=== PATIENT | female | born 1945 | race Caucasian/White ===

== ENCOUNTER 2018-02-13 10:05 | Day surgery (SDC) | payer MEDICARE ==
[~2018-02-13 10:05] MED LIST: DEXAMETHASONE SOD PHOS 4 MG/ML VIAL; MORPHINE SULFATE 2 MG/ML DISP.SYRIN. IV; ONDANSETRON PF 4 MG/2 ML VIAL. IV; POVIDONE-IODINE 10% TOPICAL OINTMENT 28GM TUBE. TP; PROCHLORPERAZINE 10 MG/2 ML VIAL. IV; fentaNYL PF VIAL 100 MCG/2 ML VIAL IV
[2018-02-13 10:54] LABS: ADD MAN DIFF? NO
[2018-02-13 10:57] LABS: BASO % 1 % (0-3); EOS # 0.1 x10^3/uL (0.0-0.7); EOS % 2 % (0-3); HEMATOCRIT 39.8 % (36.0-47.0); HEMOGLOBIN 13.2 g/dL (12.0-15.5); LYMPH # 1.7 x10^3/uL (1.0-4.8); LYMPH % 25 % (24-48); MEAN CORPUSCULAR HEMOGLOBIN 30 pg (25-35); MEAN CORPUSCULAR HGB CONC 33 g/dL (31-37); MEAN CORPUSCULAR VOLUME 90 fL (79-100); MONO # 0.7 x10^3/uL (0.0-1.1); MONO % 10 % (0-9); NEUT # 4.4 x10^3uL (1.8-7.7); NEUT % 63 % (31-73); PLATELET COUNT 248 x10^3/uL (140-400); RED BLOOD COUNT 4.45 x10^6/uL (3.50-5.40); RED CELL DISTRIBUTION WIDTH 14.2 % (11.5-14.5)
[2018-02-13] MEDS: LIDOCAINE 1% PF 2 ML VIAL. ID (11:03)
[2018-02-13] MEDS: IV RINGERS,LACTATED 1000ML 1,000 ML IV (11:05)
[2018-02-13 11:08] LABS: ANION GAP 8 (6-14); BLOOD UREA NITROGEN 21 mg/dL (7-20); CALCIUM 9.8 mg/dL (8.5-10.1); CARBON DIOXIDE 29 mmol/L (21-32); CHLORIDE 107 mmol/L (98-107); CREATININE 0.9 mg/dL (0.6-1.0); GFR 61.9; GLUCOSE 98 mg/dL (70-99); POTASSIUM 4.8 mmol/L (3.5-5.1); SODIUM 144 mmol/L (136-145)
[2018-02-13] MEDS: SCOPOLAMINE 1.5MG PATCH. TD (11:28)
[2018-02-13] MEDS ORDERED: fentaNYL PF VIAL 100 MCG/2 ML VIAL (11:59)
[2018-02-13] MEDS ORDERED: LIDOCAINE 1% PF 5 ML VIAL. (12:00)
[2018-02-13] MEDS ORDERED: PROPOFOL 20 ML IV ×2 (12:00→13:39)
[2018-02-13] MEDS ORDERED: DEXAMETHASONE SOD PHOS 20 MG/5 ML VIAL. (12:01)
[2018-02-13] MEDS ORDERED: ONDANSETRON PF 4 MG/2 ML VIAL. (12:01)
[2018-02-13] MEDS ORDERED: FAMOTIDINE 20 MG/2 ML VIAL (12:21)
[2018-02-13] MEDS ORDERED: 0.9 % SODIUM CHLORIDE 50 ML VIAL. IJ (12:31)
[2018-02-13] MEDS ORDERED: BUPIVACAINE MPF 0.5% 30 ML VIAL. (12:42)
[2018-02-13] MEDS: BUPIVACAINE MPF 0.5% 30 ML VIAL. (13:03)
[2018-02-13] MEDS: LIDOCAINE 1% PF 30 ML VIAL. (13:04)
[2018-02-13] MEDS ORDERED: SEVOFLURANE 61 TO 120 MINUTES. IH (13:35)
== END 2018-02-13 15:50 | disposition home or self-care (01) ==
LOC: SURG 10:05
DX: S92.332A Displaced fracture of third metatarsal bone, left foot, initial encounter for closed fracture (principal); K21.9 Gastro-esophageal reflux disease without esophagitis; E78.00 Pure hypercholesterolemia, unspecified; M19.90 Unspecified osteoarthritis, unspecified site; Z79.899 Other long term (current) drug therapy; Z98.890 Other specified postprocedural states; Z90.710 Acquired absence of both cervix and uterus; Z96.653 Presence of artificial knee joint, bilateral; Z87.81 Personal history of (healed) traumatic fracture; Z87.891 Personal history of nicotine dependence; X58.XXXA Exposure to other specified factors, initial encounter; Y93.89 Activity, other specified; Y92.89 Other specified places as the place of occurrence of the external cause; Y99.8 Other external cause status
CPT/HCPCS: 28485; 36415; 73630; 80048; 85025; 97161-GP; C1713; C1769; G8978-CI-GP; G8979-CI-GP; G8980-CI-GP; J0690; J1100; J2405; J2704; J3010; J3490; J7120; S0028

== ENCOUNTER 2022-02-28 09:59 | Day surgery (SDC) | payer MEDICARE ==
[~2022-02-28] VITALS: Ht 170.2 cm; Wt 70.0 kg
[~2022-02-28 09:59] MED LIST changes: +ASPI325T8 PO; +CALC500T30 PO; +CELE100C PO; -DEXAMETHASONE SOD PHOS 4 MG/ML VIAL; +DEXAMETHASONE SOD PHOS 4 MG/ML VIAL ONE; +FERR325T14 PO; +GABA-585 PO; +HYDR-2761 PO; +HYDROmorphone 2 MG/ML INJ. IVP PRN; +IV RINGERS,LACTATED 1000ML 1,000 ML IV SCH; +LIDOCAINE 1% PF 5 ML VIAL. ONE; -MORPHINE SULFATE 2 MG/ML DISP.SYRIN. IV; +MORPHINE SULFATE 2 MG/ML INJ. IVP PRN; +NAPR-514 PO; +NAPR500T8 PO; +OMEP20CA16 PO; -ONDANSETRON PF 4 MG/2 ML VIAL. IV; +ONDANSETRON PF 4 MG/2 ML VIAL. ONE; +OXYC1TAB15 PO; -POVIDONE-IODINE 10% TOPICAL OINTMENT 28GM TUBE. TP; -PROCHLORPERAZINE 10 MG/2 ML VIAL. IV; +PROCHLORPERAZINE 10 MG/2 ML VIAL. IVP PRN; +PROPOFOL 10 MG/ML (20ML) VIAL. IV ONE; +SIMV20TA18 PO; +TIZA-75 PO; +WARF-31 PO; +ceFAZolin SODIUM IV Push 1 GM VIAL. IVP PRN; -fentaNYL PF VIAL 100 MCG/2 ML VIAL IV; +fentaNYL PF VIAL 100 MCG/2 ML VIAL IVP PRN
[2022-02-28] MEDS ORDERED: fentaNYL PF VIAL 100 MCG/2 ML VIAL ONE (10:00)
[2022-02-28 10:33] VITALS: BP 130/60
[2022-02-28] MEDS ORDERED: SCOPOLAMINE 1.5MG PATCH. TD ONE (10:45)
--- NOTE | 2022-02-28 10:57 | PDOC1 ---
History and Physical Date of Admission Date of Admission DATE: 02/28/22 TIME: 10:45 Identification/Chief Complaint Chief Complaint Left third metatarsal pain Source Source: Patient History of Present Illness History of Present Illness Patient is a 76-year-old female with past medical history CAD, osteoarthritis, who presents today for outpatient ambulatory podiatry surgery. She is scheduled to have removal of hardware from her third metatarsal on her left foot. Hardware has been present for the past 4 years as result of a foot fracture. As of late the hardware has been irritating the top of her foot, so she is s cheduled for removal. Four years ago her fracture was fixed by Dr. Granda, and today Dr. Granda will also be performing her surgical removal. Past Medical History Cardiovascular: Hyperlipidemia Pulmonary: No pertinent hx GI: No pertinent hx Hepatobiliary: No pertinent hx Psych: No pertinent hx Musculoskeletal: Osteoarthritis Past Surgical History Past Surgical History Tonsillectomy, adenoidectomy, left foot surgery, bilateral knee surgery, hysterectomy, appendectomy Past Surgical History: Appendectomy, Tonsillectomy Family History Family History Prostate cancer, lung cancer Family History: No Significant Social History Smoke: Quit ALCOHOL: rare Drugs: None Current Medications Current Medications Current Medications Fentanyl Citrate (Fentanyl 2ml Vial) 25 mcg PRN Q5MIN PRN IVP MILD PAIN 1-3; Start 02/28/22 at 06:00; Stop 03/01/22 at 05:59 Fentanyl Citrate (Fentanyl 2ml Vial) 50 mcg PRN Q5MIN PRN IVP MODERATE PAIN 4- 6; Start 02/28/22 at 06:00; Stop 03/01/22 at 05:59 Morphine Sulfate (Morphine Sulfate) 1 mg PRN Q10MIN PRN IVP SEVERE PAIN 7-10; Start 02/28/22 at 06:00; Stop 03/01/22 at 05:59 Ringer's Solution 1,000 ml @ 30 mls/hr Q24H IV ; Start 02/28/22 at 06:00; Stop 02/28/22 at 17:59 Hydromorphone HCl (Dilaudid) 0.5 mg PRN Q10MIN PRN IVP SEVERE PAIN 7-10, 2nd CHOICE; Start 02/28/22 at 06:00; Stop 03/01/22 at 05:59 Prochlorperazine Edisylate (Compazine) 5 mg PACU PRN PRN IVP NAUSEA, MRX1; Start 02/28/22 at 06:00; Stop 03/01/22 at 05:59 Cefazolin Sodium (Ancef) 1 gm 1X PREOP PRN IVP PRIOR TO PROCEDURE; Start 02/28/22 at 06:00 Propofol (Diprivan) 200 mg STK-MED ONCE IV ; Start 02/28/22 at 09:59; Stop 02/28/22 at 09:59; Status DC Ondansetron HCl (Zofran) 4 mg STK-MED ONCE .ROUTE ; Start 02/28/22 at 09:59; Stop 02/28/22 at 09:59; Status DC Dexamethasone Sodium Phosphate (Decadron) 4 mg STK-MED ONCE .ROUTE ; Start 02/28/22 at 09:59; Stop 02/28/22 at 09:59; Status DC Lidocaine HCl (Xylocaine-Mpf 1% 5ml Vial) 5 ml STK-MED ONCE .ROUTE ; Start 02/28/22 at 09:59; Stop 02/28/22 at 09:59; Status DC Fentanyl Citrate (Fentanyl 2ml Vial) 100 mcg STK-MED ONCE .ROUTE ; Start 02/28/22 at 10:00; Stop 02/28/22 at 10:00; Status DC Active Scripts Active Reported Celebrex (Celecoxib) 100 Mg Capsule 100 Mg PO HS 30 Days Omeprazole 20 Mg Capsule.dr 20 Mg PO PRN PRN Tizanidine Hcl 4 Mg Tablet 2 Mg PO HS PRN Gabapentin (Gabapentin) 100 Mg Capsule 100 Mg PO TID Calcium (Calcium Carbonate) 500 Mg Tablet 1,000 Mg PO DAILY Simvastatin 20 Mg Tablet 20 Mg PO HS LAST DOSE GIVEN: DATE: 02/21 TIME: 9 pm NEXT DOSE DUE: DATE: 02/22 TIME: 9 pm Allergies Allergies: Coded Allergies: No Known Drug Allergies (Unverified , 02/28/22) ROS Review of System GENERAL: No history of weight change, weakness or fevers. SKIN: No bruising, hair changes or rashes. EYES: No blurred, double or loss of vision. NOSE AND THROAT: No history of nosebleeds, hoarseness or sore throat. HEART: Denies chest pain, denies palpitations. LUNGS: Denies cough, hemoptysis, wheezing or shortness of breath. GASTROINTESTINAL: Denies nausea, vomiting, abdominal pain. GENITOURINARY: Denies dysuria, frequency, urgency, hematuria. NEUROLOGIC: Denies history of numbness, tingling, tremor or weakness. PSYCHIATRIC: Denies anxiety, denies depression. ENDOCRINE: No history of heat or cold intolerance, polyuria or polydipsia. EXTREMITIES: Left third toe pain. Denies muscle weakness or stiffness. Physical Exam Physical Exam General: Alert, Oriented X3, Cooperative, No acute distress HEENT: PERRLA, EOMI Lungs: Clear to auscultation, Normal air movement Heart: RRR, no murmurs Cardiovascular: S1, S2 Abdomen: Normal bowel sounds, Soft, No tenderness Extremities: Left third metatarsal in flexed position. No clubbing, No cyanosis. Skin: No rashes, No significant lesion Neuro: Normal speech, Normal tone, Sensation intact Psych/Mental Status: Mental status NL, Mood NL Vitals Vitals Vital Signs Date Time Temp Pulse Resp B/P (MAP) Pulse Ox O2 Delivery O2 Flow Rate FiO2 02/28/22 10:33 97.0 69 20 98 97.0 VTE Prophylaxis Ordered VTE Prophylaxis Devices: Yes VTE Pharmacological Prophylaxi: No Assessment/Plan Assessment/Plan Hardware removal third metatarsal of left foot Osteoarthritis Plan: Outpatient amatory surgery and minimal blood loss expected Barring complications patient will most likely discharge home with after the surgical removal of her hardware FEN - Cardiac diet PPX - Ambulatory FULL CODE Dispo - Home with spouse Justifications for Admission Other Justification RADHA ALDANA MD Feb 28, 2022 10:57
[2022-02-28 11:00] LABS: BASO % 1 % (0-3); EOS # 0.1 x10^3/uL (0.0-0.7); EOS % 2 % (0-3); HEMATOCRIT 40.7 % (36.0-47.0); HEMOGLOBIN 13.4 g/dL (12.0-15.5); LYMPH # 1.9 x10^3/uL (1.0-4.8); LYMPH % 37 % (24-48); MEAN CORPUSCULAR HEMOGLOBIN 29 pg (25-35); MEAN CORPUSCULAR HGB CONC 33 g/dL (31-37); MEAN CORPUSCULAR VOLUME 89 fL (79-100); MONO # 0.5 x10^3/uL (0.0-1.1); MONO % 11 % (0-9); NEUT # 2.4 x10^3/uL (1.8-7.7); NEUT % 49 % (31-73); PLATELET COUNT 214 x10^3/uL (140-400); RED BLOOD COUNT 4.57 x10^6/uL (3.50-5.40); RED CELL DISTRIBUTION WIDTH 13.7 % (11.5-14.5)
[2022-02-28 11:15] LABS: CREATININE 0.9 mg/dL (0.6-1.0); GFR 61.2; POTASSIUM 4.1 mmol/L (3.5-5.1)
[2022-02-28 11:22] LABS: ALBUMIN 4.1 g/dL (3.4-5.0); ALBUMIN/GLOBULIN RATIO 1.3 (1.0-1.7); TOTAL BILIRUBIN 0.6 mg/dL (0.2-1.0); TOTAL PROTEIN 7.3 g/dL (6.4-8.2)
[2022-02-28] MEDS ORDERED: BUPIVACAINE MPF 0.5% 30 ML VIAL. ONE (11:26)
[2022-02-28] MEDS ORDERED: LIDOCAINE 1% Multi-Dose 20 ML VIAL. ONE (11:26)
[2022-02-28] MEDS ORDERED: FAMOTIDINE 20 MG/2 ML VIAL ONE (12:07)
[2022-02-28] MEDS ORDERED: BACITRACIN TOPICAL OINT PACKET. TP ONE (12:10)
[2022-02-28] MEDS ORDERED: DEXAMETHASONE SOD PHOS 4 MG/ML VIAL ONE ×2 (12:15→12:30)
--- NOTE | 2022-02-28 12:27 | PDOC4 ---
OPERATIVE NOTE Date: Date: Feb 28, 2022 Pre-Op Diagnosis: symptomatic hardware left 3rd metatarsal Post-Op Diagnosis: same Procedure Performed: excision of hardware 3rd metatarsal left foot Surgeon: Kalee Anesthesia Type: LMA with local Blood Loss: 0mL Specimans Obtained: none Findings: hardware to 3rd metatarsal with no signs of infection or fractures Complications: none Operative Note: Patient tolerated both anesthesia and procedure well, tranferred to PACU with VSS adn VSI to left foot COLE CAGLE DPM Feb 28, 2022 12:27
[2022-02-28] MEDS ORDERED: IBUP-1060 PO (12:44)
[2022-02-28 12:55] VITALS: BP 133/63
--- NOTE | 2022-02-28 13:00 | OP ---
DATE OF SURGERY: 02/28/2022 PREOPERATIVE DIAGNOSIS: Symptomatic hardware, left 3rd metatarsal. POSTOPERATIVE DIAGNOSIS: Symptomatic hardware, left 3rd metatarsal. PROCEDURE: Excision of painful hardware, third metatarsal, left foot. SURGEON: Dr. Marilynn Granda. ANESTHESIA: LMA with local ankle block. HEMOSTASIS: Left ankle tourniquet at 250 mmHg. INDICATIONS: The patient is a 72-year-old female who presented to clinic complaining of painful hardware to the left foot. The patient had undergone an ORIF of a displaced fracture, third metatarsal on 02/13/2018. She was healed uneventfully and has recently been having pain and shoe gear. Thus discussed with the patient her risks, benefits and complications to include delayed or nonhealing, need for further surgery, infection, numbness, tingling, burning, chronic pain, DVT to the leg, pulmonary embolism, loss of toe, foot, limb or life. All questions were answered. No guarantees were made. The patient signed consent freely and put in chart. DESCRIPTION OF PROCEDURE: The patient was transported to the operating room via a cart and placed on the operating table in supine position. She was given 1 gram of IV Ancef preoperatively. LMA was administered per anesthesia and I performed an ankle block to the left consisting of a 1:1 mixture of 1% lidocaine plain and 0.5% Marcaine plain, 20 mL total. The left foot was then prepped and draped in the usual aseptic manner. A well-padded tourniquet was placed over the left ankle. An Esmarch bandage was used to exsanguinate the left foot. The left ankle tourniquet was inflated to 250 mmHg. Timeout was taken to verify the patient's surgery and limb to be performed. Attention was directed to the third metatarsal where a 5-cm incision was made just dorsal to the third metatarsal where we palpated the hardware. This was deepened to the level of the metatarsal. Small vessels were retracted from the field and retracted the extensor tendon from covering the hardware. Next, this was deepened to the level of the hardware and joint capsule. There was one 3-0 fully threaded cortical screw removed and then three 3.0 locking screws fully threaded cortical screws. We removed the 5-hole plate over the metatarsal and the wound was copiously irrigated with sterile saline and next the skin was reapproximated with 3-0 Vicryl and 4-0 nylon. A postop injection was given with 4 mg/mL of Decadron 1 mL total and the wound was dressed with bacitracin, Adaptic gauze, 4 x 4s, Kerlix and Zeus bandage. The tourniquet was deflated and good perfusion was noted to all digits of the left foot. The patient is to be minimal weightbearing as tolerated in a surgical shoe. She is to return to office for wound check in one to two weeks. She is to begin ibuprofen 800 mg t.i.d. p.r.n. pain. HUI DR: Maru TID: [id number]
--- NOTE | 2022-03-01 11:22 | RAD ---
EXAM: XR FOOT_LEFT 3 VIEWS 02/28/2022 12:27 PM CLINICAL INDICATION: Postop COMPARISON: Left foot radiograph 02/13/2018 TECHNIQUE: 3 views of the left foot FINDINGS: There has been interval removal of the third metatarsal fixation plate and screws. The hea led third metatarsal fractures are unchanged in appearance with a chronic plantarly displaced fragmen t. Fractures of the base of the second and fourth metatarsals have also healed There is no acute frac ture. Alignment is normal and there is soft tissue gas along the dorsal forefoot. IMPRESSION: 1. Interval removal of third metatarsal hardware. 2. Interval healing of second through fourth metatarsal fractures, unchanged in alignment. Electronically signed by: Charlee Chandler MD (03/01/2022 11:20 AM) [id number]
== END 2022-02-28 13:30 | disposition home or self-care (01) ==
LOC: SURG 09:59
PROVIDERS: ATTEND Podiatrist Foot & Ankle Surgery
DX: M79.675 Pain in left toe(s) (principal); M19.90 Unspecified osteoarthritis, unspecified site; E78.00 Pure hypercholesterolemia, unspecified; K21.9 Gastro-esophageal reflux disease without esophagitis; Z79.899 Other long term (current) drug therapy; Z90.710 Acquired absence of both cervix and uterus; Z98.890 Other specified postprocedural states
CPT/HCPCS: 20680; 36415; 73630; 80053; 85025; A4930; J0690; J1100; J2405; J2704; J3010; J3490; A4657